=== PATIENT | male | born 1955 | race Caucasian/White ===

== ENCOUNTER 2018-07-28 17:13 | Emergency (ER) | payer BC ==
[~2018-07-28] VITALS: Ht 182.9 cm; Wt 93.0 kg
[2018-07-28 17:56] LABS: BASOPHILS PERCENT AUTO 1 % (0-2); EOSINOPHILS ABSOLUTE AUTO 0.39 K/mm3 (0.00-0.68); EOSINOPHILS PERCENT AUTO 2 % (0-6); Hematocrit 45.6 % (37.0-53.0); Hemoglobin 15.2 g/dL (13.5-17.5); IMMATURE GRAN ABSOLUTE AUTO 0.05 K/mm3 (0.00-0.10); IMMATURE GRAN PERCENT AUTO 0 % (0-1); LYMPHOCYTES ABSOLUTE AUTO 4.39 K/mm3 (0.84-5.20); LYMPHOCYTES PERCENT AUTO 24 % (21-46); MONOCYTES ABSOLUTE AUTO 1.16 K/mm3 (0.16-1.47); MONOCYTES PERCENT AUTO 6 % (4-13); Mean Corpuscular HGB 31.5 pg (26.0-34.0); Mean Corpuscular HGB Conc 33.3 g/dL (31.5-36.5); Mean Corpuscular Volume 95 fL (80-100); Mean Platelet Volume 9.8 fL (9.1-12.4); NEUTROPHILS ABSOLUTE AUTO 11.96 K/mm3 (1.96-9.15); NEUTROPHILS PERCENT AUTO 66 % (41-73); Platelet Count 332 K/mm3 (150-400); RDW Coefficient Variation 12.9 % (11.7-14.2); RDW Standard Deviation 44.9 fL (35.1-46.3); Red Blood Cell Count 4.82 M/mm3 (4.30-5.90); White Blood Cell Count 18.05 K/mm3 (4.00-11.30)
[2018-07-28] MEDS ORDERED: HYDR1TAB94 PO (18:24)
[2018-07-28] MEDS ORDERED: ASPI81CH PO (18:24)
[2018-07-28] MEDS ORDERED: ATOR10 PO (18:24)
[2018-07-28 18:38] LABS: Alanine Aminotransfer (ALT/SGP 31 U/L (12-78); Albumin, Blood 3.6 g/dL (3.4-5.0); Albumin/Globulin Ratio 0.9 (0.8-1.8); Alk Phos 73 U/L (50-136); Anion Gap 8 mmol/L (6-16); Aspartate Aminotrans (AST/SGOT 23 U/L (12-37); Bilirubin, Total 0.6 mg/dL (0.1-1.0); Blood Urea Nitrogen 19 mg/dL (8-24); Bun/Creatinine Ratio 16.8 (12.0-20.0); CO2, Blood 27 mmol/L (21-32); Calcium, Blood 8.6 mg/dL (8.5-10.1); Chloride, Blood 105 mmol/L (98-108); Creatinine, Blood 1.13 mg/dL (0.60-1.20); Globulin, Blood 4.1 g/dL (2.2-4.0); Glomerular Filtration Rate >60 (60-); Glucose, Blood 122 mg/dL (70-99); Potassium, Blood 4.1 mmol/L (3.5-5.5); Sodium, Blood 140 mmol/L (136-145); Total Protein, Blood 7.7 g/dL (6.4-8.2)
[2018-07-28 18:46] LABS: Troponin I <0.015 ng/mL (0.000-0.040)
[2018-07-28 19:14] LABS: Source, Urine Catheter
[2018-07-28 19:18] LABS: Bilirubin, Urine Neg (Neg); Blood, Urine Neg (Neg); Glucose Qualitative, Urine Neg (Neg); Ketones, Urine Neg (Neg); Leukocyte Esterase, Urine Neg (Neg); Nitrite, Urine Neg (Neg); Protein, Urine Neg (Neg); Specific Gravity, Urine 1.015 (1.003-1.022); Urobilinogen, Urine NORM (Normal); pH, Urine 6.5 (5.0-8.0)
[2018-07-28 19:51] LABS: Appearance, Urine Clear (Clear); Color, Urine Yellow (P-Yellow)
[2018-07-28] MEDS ORDERED: ONDA4ODT MM (21:34)
== END 2018-07-28 21:56 | disposition home or self-care (01) ==
LOC: ER 17:13
PROVIDERS: Emergency Medicine; Physician Assistant
DX: K59.00 Constipation, unspecified (principal); N40.1 Benign prostatic hyperplasia with lower urinary tract symptoms; R33.9 Retention of urine, unspecified; N32.89 Other specified disorders of bladder; R55 Syncope and collapse; Z79.82 Long term (current) use of aspirin; Z79.899 Other long term (current) drug therapy
CPT/HCPCS: 51701; 51702; 74177; 80053; 81003; 83690; 84484; 85025; 93005; 93010; 96374; 96375; 99284-25; J2270; J2405; J7030; Q9967

== ENCOUNTER 2019-12-13 10:34 | Day surgery (SDC) | payer MEDICARE, BC ==
[~2019-12-13] VITALS: Ht 182.9 cm; Wt 93.4 kg
[~2019-12-13 10:34] MED LIST: ASPI81CH PO; ATOR10 PO; HYDR1TAB94 PO; ONDA4ODT MM
--- NOTE | 2019-12-13 13:13 | NUR ---
PT ADMITTED TO [facility]. AGREES WITH PLANNED SURGERY. LUNG SOUNDS CLEAR.
--- NOTE | 2019-12-13 17:25 | NUR ---
Patient up to Ambulate independently. Gait steady. Dressing to procedure site clean, dry, intact with no visible drainage, swelling, erythema or bruising noted. Adilene wound vac dressing in place. Instructed how adilene works. Patient States Post-Procedure ride home has been arranged. Discharged via wheelchair to private car for ride home.
== END 2019-12-13 17:36 | disposition home or self-care (01) ==
LOC: ORD 10:34 → ORSCMMR 10:34 → ORD 17:36
PROVIDERS: Surgery
PROC: 0WUF0JZ Supplement Abdominal Wall with Synthetic Substitute, Open Approach (ICD-10-PCS; principal; 2019-12-13 13:00)
DX: K43.0 Incisional hernia with obstruction, without gangrene (principal); G47.33 Obstructive sleep apnea (adult) (pediatric); Z87.891 Personal history of nicotine dependence; Z79.899 Other long term (current) drug therapy; Z79.82 Long term (current) use of aspirin
CPT/HCPCS: A9270-GY; C1781; J0690; J1100; J2250; J2405; J2704; J2710; J3010; J7120; U0002

== ENCOUNTER → 2020-11-05 | Outpatient (CLI) | payer MEDICARE, BC | LOC: LAB 10:17 → LAB SHORT 10:17 | DX: D48.5 Neoplasm of uncertain behavior of skin (principal) | CPT/HCPCS: 88312 ==

== ENCOUNTER 2022-12-07 11:03 | Day surgery (SDC) | payer MEDICARE, BC ==
[~2022-12-07] VITALS: Ht 180.3 cm; Wt 97.6 kg
[2022-12-07] VITALS (10 sets, daily range): BP systolic 128–149; BP diastolic 68–97
[~2022-12-07 11:03] MED LIST changes: +Simvastatin10 MG PO; +TAMS.4ER PO
--- NOTE | 2022-12-07 16:29 | NUR ---
Patient up to Ambulate independently. Gait steady. Dressing to procedure site clean, dry, intact with no visible drainage, swelling, erythema or bruising noted. Patient States Post-Procedure ride home has been arranged. Discharged via wheelchair to private car for ride home.
== END 2022-12-07 16:16 | disposition home or self-care (01) ==
LOC: ORSCMMR 11:03 → ORD 11:45 → ORSCMMR 12:30 → ORD 12:30 → ORSCMMR 16:16
PROVIDERS: Orthopaedic Surgery
PROC: 0SBD4ZZ Excision of Left Knee Joint, Percutaneous Endoscopic Approach (ICD-10-PCS; principal; 2022-12-07 12:30)
DX: S83.242A Other tear of medial meniscus, current injury, left knee, initial encounter (principal); S83.282A Other tear of lateral meniscus, current injury, left knee, initial encounter; M94.262 Chondromalacia, left knee; N40.0 Benign prostatic hyperplasia without lower urinary tract symptoms; Z79.899 Other long term (current) drug therapy
CPT/HCPCS: A9270; J0171; J0690; J2250; J2370; J2405; J2704; J3010; J7120